=== PATIENT | female | born 1965 | race Two or more races ===

== ENCOUNTER 2023-08-03 05:25 | Day surgery (SDC) | payer OTHER ==
[2023-07-22 09:47] LABS: PH,URINE 6.5 (5.0-8.0); URINE APPEARANCE Clear; URINE BILIRRUBIN Negative (NEGATIVE); URINE BLOOD Trace; URINE COLOR Yellow; URINE GLUCOSE Negative (NEGATIVE); URINE LEUKOCYTE Negative; URINE NITRATE Negative; URINE PROTEIN Negative (NEGATIVE); URINE UROBILINOGEN 0.2 E.U./dl
[2023-07-22 09:53] LABS: URINE BACTERIA 148.6 uL (0.0-1933); URINE EPITHELIAL CELLS 3.5 uL (0.0-38.8); URINE RBC 8.7 uL (0.0-20.8); URINE WBC 2.1 uL (0.0-23.2)
[2023-07-22 09:54] LABS: HEMATOCRIT 39.5 % (36.0-45.00); MEAN CORPUSCULAR HEMOGLOBIN 30.3 pg (27.00-32.0); MEAN CORPUSCULAR HGB CONC 32.9 g/dl (32.0-36.0); PLATELET COUNT 324 K/uL (150-450); RED BLOOD COUNT 4.29 M/uL (4.00-6.00); RED CELL DISTRIBUTION WIDTH 13.3 % (11.5-14.5)
[2023-07-22 10:08] LABS: INR 0.98; PARTIAL THROMBOPLASTIN TIME 27.5 SECONDS (22.0-34.0); PROTHROMBIN TIME 10.3 SECONDS (9.0-11.5)
[2023-07-22 10:15] LABS: ALBUMIN 4.2 gm/dL (3.4-5.0); BILIRUBIN TOTAL 0.83 mg/dL (0.3-1.2); CALCIUM 9.4 mg/dL (8.5-10.1); CREATININE SERUM 0.75 mg/dL (0.55-1.02); GFR 79.65; POTASSIUM 4.34 mEq/L (3.5-5.1); TOTAL PROTEIN 7.2 gm/dL (6.4-8.2)
[~2023-08-03] VITALS: Ht 165.1 cm; Wt 51.7 kg
== END 2023-08-03 12:45 | disposition home or self-care (01) ==
LOC: CIR.AMB 05:25
PROVIDERS: ATTEND Otolaryngology
DX: E04.1 Nontoxic single thyroid nodule (principal); Z20.822 Contact with and (suspected) exposure to COVID-19; Z88.0 Allergy status to penicillin; Z88.6 Allergy status to analgesic agent

== ENCOUNTER 2023-08-03 20:00 | Inpatient (IN) | payer OTHER ==
[~2023-08-03] VITALS: Ht 165.1 cm; Wt 51.3 kg
[2023-08-03 21:29] LABS: HEMATOCRIT 35.9 % (36.0-45.00); HEMOGLOBIN 11.6 g/dL (12.0-15.00); MEAN CELL VOLUME 92.2 fL (80.00-100.00); MEAN CORPUSCULAR HEMOGLOBIN 29.8 pg (27.00-32.0); MEAN CORPUSCULAR HGB CONC 32.3 g/dl (32.0-36.0); PLATELET COUNT 244 K/uL (150-450)
[2023-08-03 21:53] LABS: ALBUMIN 3.7 gm/dL (3.4-5.0); BILIRUBIN TOTAL 0.87 mg/dL (0.3-1.2); CALCIUM 8.8 mg/dL (8.5-10.1); CREATININE SERUM 0.73 mg/dL (0.55-1.02); GFR 82.17; GLOBULINA 3.3 G/DL (2.4-3.5); POTASSIUM 4.16 mEq/L (3.5-5.1)
== END 2023-08-04 14:07 | disposition home or self-care (01) | DRG 921 ==
LOC: ER 20:00 → SURG 21:43
PROVIDERS: General Practice; ADMIT Otolaryngology; ATTEND Otolaryngology
DX: E89.89 Other postprocedural endocrine and metabolic complications and disorders (principal); R11.2 Nausea with vomiting, unspecified; E86.0 Dehydration; Z20.822 Contact with and (suspected) exposure to COVID-19